=== PATIENT | female | born 1970 | race African-American/Black ===

== ENCOUNTER 2022-04-27 10:39 | Emergency (ER) | payer BC ==
[~2022-04-27] VITALS: Ht 172.7 cm; Wt 79.0 kg
[2022-04-27] MEDS ORDERED: KETOROLAC 15MG/ML VIAL IM ONE (11:30)
[2022-04-27] MEDS ORDERED: CYCLOBENZAPRINE 10MG TABLET PO ONE (11:30)
[2022-04-27] MEDS ORDERED: CYCLOBENZAPRINE 10MG TABLET PO SCH (13:15)
[2022-04-27] MEDS ORDERED: KETOROLAC 15MG/ML VIAL IM SCH (13:15)
[2022-04-27 13:41] VITALS: BP 153/75
[2022-04-27] MEDS ORDERED: NAPR500T7 MT (13:48)
[2022-04-27] MEDS ORDERED: CYCL10TA21 MT (13:48)
== END 2022-04-27 14:07 | disposition home or self-care (01) ==
LOC: ER 10:39
DX: M54.50 Low back pain, unspecified (principal); J45.909 Unspecified asthma, uncomplicated; V43.52XA Car driver injured in collision with other type car in traffic accident, initial encounter; Y93.89 Activity, other specified; Y92.488 Other paved roadways as the place of occurrence of the external cause
CPT/HCPCS: 71045; 73030; 73060; 96372; 99284; J1885